=== PATIENT | female | born 2000 | race Caucasian/White ===

== ENCOUNTER 2019-05-06 04:29 | Emergency (ER) | payer SELFPAY ==
--- NOTE | 2019-05-06 05:19 | ED ---
Psychiatric Complaint - HPI Summary HPI Summary: This patient is a 19 year old female presenting to [facility] with a chief complaint of self harm. The patient cut her left wrist with a knife. She denies SI. She reports ETOH use and denies drug use. - History Of Current Complaint Chief Complaint: EDMentalHealth Time Seen by Provider: 05/06/19 05:14 Hx Obtained From: Patient Aggravating Factor(s): Alcohol Use - Allergies/Home Medications Allergies/Adverse Reactions: Allergies Allergy/AdvReac Type Severity Reaction Status Date / Time No Known Allergies Allergy Verified 05/06/19 04:36 Home Medications: Home Medications Bupropion XL* [Wellbutrin XL *] 450 mg PO DAILY 05/06/19 [History Confirmed ] Desog-E.estradiol/E.estradiol [Desogestrel/Ethin... 0.15-0.02/0.01 mg (27/12)] 1 tab PO DAILY 05/06/19 [History Confirmed 05/06/19] Montelukast Sodium TAB* [Singulair TAB*] 10 mg PO DAILY 05/06/19 [History Confirmed 05/06/19] Omeprazole 20 mg PO DAILY 05/06/19 [History Confirmed 05/06/19] PMH/Surg Hx/FS Hx/Imm Hx Endocrine/Hematology History: Denies: Hx Diabetes Cardiovascular History: Denies: Hx Coronary Artery Disease Infectious Disease History: No Infectious Disease History: Denies: Traveled Outside the [place] in Last 30 Days - Family History Known Family History: Negative: Hypertension - Social History Alcohol Use: Weekly Substance Use Type: Reports: None Smoking Status (MU): Never Smoked Tobacco Review of Systems Positive: Other - Wrist laceration Positive: Other - Self-harm All Other Systems Reviewed And Are Negative: Yes Physical Exam - Summary Physical Exam Summary: Appearance: Well-appearing, Well-nourished, lying in bed comfortably Skin: Warm, dry, no obvious rash. 6 cm laceration over the volar left wrist. No active bleeding. Consistent with self-inflicted wrist cutting injury. Eyes: sclera anicteric, no conjunctival pallor ENT: mucous membranes moist, pharynx appears normal Neck: Supple, nontender Respiratory: Clear to auscultation, no signs of respiratory distress Cardiovascular: Normal S1, S2. No murmurs. Normal distal pulses in tibial and radial bilaterally. Abdomen: Soft, nontender, normal active bowel sounds present Musculoskeletal: Normal, Strength/ROM Intact Neurological: A&Ox3, awake and alert, mentation is normal, speech is fluent and appropriate Psychiatric: affect is normal, does not appear anxious or depressed Triage Information Reviewed: Yes Vital Signs On Initial Exam: Initial Vitals Temp Pulse Resp BP Pulse Ox 98.2 F 92 16 156/94 98 05/06/19 04:30 05/06/19 04:30 05/06/19 04:30 05/06/19 04:30 05/06/19 04:30 Vital Signs Reviewed: Yes Procedures - Sedation Patient Received Moderate/Deep Sedation with Procedure: No - Laceration/Wound Repair 1 Location: upper extremity Closure: Skin Adhesive Layer Closure?: Yes Diagnostics - Vital Signs Vital Signs Temp Pulse Resp BP Pulse Ox 05/06/19 04:30 98.2 F 92 16 156/94 98 - Laboratory Result Diagrams: 05/06/19 05:20 05/06/19 05:20 Lab Statement: Any lab studies that have been ordered have been reviewed, and results considered in the medical decision making process. Course/Dx - Course Course Of Treatment: This patient is a 19 year old female presenting to [facility] with a chief complaint of self harm. The patient will be signed out to Dr. Fermin pending MHE at shift change 0700. - Differential Dx/Clinical Impression Provider Diagnosis: Laceration of wrist, Adjustment disorder Discharge ED - Sign-Out/Discharge Documenting (check all that apply): Sign-Out Patient Signing out patient TO: Chandan Fermin - Discharge Plan Condition: Stable Disposition: HOME Patient Education Materials: Mood Disorders (ED) Referrals: No Primary Care Phys,NOPCP [Primary Care Provider] - - Billing Disposition and Condition Condition: STABLE Disposition: Home - Attestation Statements Document Initiated by Hipolito: Yes Documenting Scribe: Elijah Mcintosh Provider For Whom Hipolito is Documenting (Include Credential): Chandan Myles MD Scribe Attestation: Elijah Sosa, melanieed for Chandan Myles MD on 05/12/19 at 0427. Scribe Documentation Reviewed: Yes Provider Attestation: The documentation as recorded by the Elijah avendaño accurately reflects the service I personally performed and the decisions made by Chandan borrero MD Status of Scribe Document: Viewed
[2019-05-06 05:33] LABS: ABS Eosinophils 0.2 10^3/ul (0-0.6); ABS Lymphocytes 1.8 10^3/ul (1.0-4.8); ABS Monocytes 0.4 10^3/ul (0-0.8); ABS Neutrophils 5.9 10^3/ul (1.5-7.7); Eosinophil % 2.1 %; Hematocrit 39 % (35-47); Hemoglobin 13.5 g/dL (12.0-16.0); Lymphocyte % 21.7 %; Mean Corpuscular HGB Conc 35 g/dL (31-36); Mean Corpuscular Hemoglobin 30 pg (27-31); Mean Corpuscular Volume 87 fL (80-97); Mean Platelet Volume 7.6 fL (7.4-10.4); Platelet Count 338 10^3/uL (150-450); Red Blood Count 4.43 10^6 /uL (3.70-4.87); Red Cell Distribution Width 13 % (10-15); White Blood Count 8.3 10^3/uL (3.5-10.8)
[2019-05-06 05:47] LABS: ALT 15 U/L (7-52); AST 16 U/L (13-39); Acetaminophen < 15 mcg/mL; Albumin 4.3 g/dL (3.2-5.2); Albumin/Globulin Ratio 1.5 (1-3); Alcohol 110 mg/dL (<10); Alkaline Phosphatase 51 U/L (34-104); Anion Gap 9 mmol/L (2-11); BUN/Creatinine Ratio 15.7 (8-20); Blood Urea Nitrogen 13 mg/dL (6-24); CO2 Carbon Dioxide 22 mmol/L (22-32); Calcium 9.2 mg/dL (8.6-10.3); Chloride 108 mmol/L (101-111); EGFR Non-African American 86.8 (>60); Globulin 2.9 g/dL (2-4); Glucose 96 mg/dL (70-100); Potassium 3.6 mmol/L (3.5-5.0); Salicylate < 2.50 mg/dL (<30); Sodium 139 mmol/L (135-145); Total Protein 7.2 g/dL (6.4-8.9)
[2019-05-06 05:55] LABS: HCG Pregnancy < 0.60 mIU/mL
[2019-05-06 06:02] LABS: TSH (Thyroid Stimulating Horm) 3.85 mcIU/mL (0.34-5.60)
[2019-05-06 06:35] LABS: Urine Appearance Clear; Urine Bacteria Absent (Absent); Urine Bilirubin Negative (Negative); Urine Blood Negative (Negative); Urine Color Yellow; Urine Glucose Negative (Negative); Urine Ketones Negative (Negative); Urine Nitrite Negative (Negative); Urine Protein Negative (Negative); Urine Red Blood Cell Absent (Absent); Urine Squamous Epithelial Cell Present (Absent); Urine Urobilinogen Negative (Negative); Urine White Blood Cell 1+(6-10/hpf) (Absent)
[2019-05-06 06:43] LABS: Urine Benzodiazepine Screen None Detected (None Detect); Urine Opiates Screen None Detected (None Detect)
--- NOTE | 2019-05-06 07:23 | ED ---
Progress - Progress Note Progress Note: This pt was signed out from Dr. Myles to Dr. Fermin at shift change on 05/06/19 at 0700 pending mental health evaluation. Course/Dx - Course Course Of Treatment: This pt was signed out by Dr. Myles pending MHE. Pt had a mental health evaluation and her case was reviewed by Dr. Rios, psychiatrist. Dr. Rios has cleared the pt for discharge with outpatient follow up at [facility]. - Diagnoses Provider Diagnoses: Laceration of wrist, Adjustment disorder Discharge ED - Sign-Out/Discharge Documenting (check all that apply): Patient Departure - Discharge home, Receiving Sign-Out Receiving patient FROM: Chandan Myles Patient Received Moderate/Deep Sedation with Procedure: No - Discharge Plan Condition: Stable Disposition: HOME Patient Education Materials: Mood Disorders (ED) Referrals: No Primary Care Phys,NOPCP [Primary Care Provider] - - Billing Disposition and Condition Condition: STABLE Disposition: Home - Attestation Statements Document Initiated by Scribe: Yes Documenting Scribe: Jeanne Vernon Provider For Whom Alessiaibdennis is Documenting (Include Credential): Chandan Fermin MD Scribe Attestation: Jeanne Sosa, scribed for Chandan Fermin MD on 05/06/19 at 1446. Scribe Documentation Reviewed: Yes Provider Attestation: The documentation as recorded by the Jeanne avendaño accurately reflects the service I personally performed and the decisions made by me, Chandan Fermin MD Status of Scribe Document: Viewed
[2019-05-06 10:10] VITALS: BP 125/64
== END 2019-05-06 10:00 | disposition home or self-care (01) ==
LOC: ED 04:29
DX: S61.512A Laceration without foreign body of left wrist, initial encounter (principal); F43.20 Adjustment disorder, unspecified; X78.1XXA Intentional self-harm by knife, initial encounter; Y92.9 Unspecified place or not applicable; Z79.899 Other long term (current) drug therapy
CPT/HCPCS: 36415; 80053; 80307; 80320; 80329; 81003; 81015; 84443; 84702; 85025; 87086; 99285; G0480